=== PATIENT | female | born 2000 | race Hispanic/Latino ===

== ENCOUNTER 2022-11-19 02:16 | Emergency (ER) | payer MEDICAID, OTHER ==
[~2022-11-19] VITALS: Ht 165.1 cm; Wt 65.8 kg
[2022-11-19 03:47] LABS: APPEARANCE,URINE CLEAR (CLEAR); BILIRUBIN,URINE NEGATIVE (NEGATIVE); COLOR,URINE YELLOW (YELLOW); GLUCOSE, URINE (UA) NEGATIVE (NEGATIVE); KETONES,URINE 20 mg/dL (NEGATIVE); LEUKOCYTE ESTERASE ,URINE NEGATIVE Leu/uL (NEGATIVE); NITRATE,URINE NEGATIVE (NEGATIVE); OCCULT BLOOD,URINE SMALL (NEGATIVE); PROTEIN,URINE 50 mg/dL (NEGATIVE); UROBILINOGEN,URINE 0.2 mg/dL (0.2-1.0)
[2022-11-19 03:50] LABS: MUCUS,URINE FEW LPF (None Seen); SQUAMOUS EPITHELIAL CELL,UR FEW /HPF (0-2)
[2022-11-19 04:12] LABS: BASOPHILS % (AUTO) 0.2 % (0.0-5.0); EOSINOPHILS % (AUTO) 0.1 % (0.0-8.0); HEMATOCRIT 42.7 % (36-48); LYMPHOCYTES % (AUTO) 3.5 % (21.0-51.0); MEAN CORPUSCULAR HEMOGLOBIN 28.8 pg (27.0-33.0); MEAN CORPUSCULAR HGB CONC 33.5 g/dL (32.0-36.0); MEAN CORPUSCULAR VOLUME 85.9 fL (79-99); MONOCYTES % (AUTO) 5.1 % (3.0-13.0); NEUTROPHILS % (AUTO) 90.7 % (40.0-77.0); PLATELET COUNT (AUTO) 217 K/uL (130-400); RED BLOOD CELL COUNT(AUTO) 4.97 MIL/uL (4.00-5.50); WHITE BLOOD COUNT (AUTO) 13.9 K/uL (4.8-10.8)
[2022-11-19 04:20] LABS: CREATININE 0.9 mg/dL (0.5-1.5); POTASSIUM 4.1 mmol/L (3.5-5.1)
[2022-11-19 04:29] LABS: TOTAL PROTEIN, SERUM 8.2 g/dL (6.0-8.3)
[2022-11-19] MEDS ORDERED: ONDANSETRON 4MG INJ IVP STA (04:52)
[2022-11-19] MEDS ORDERED: 0.9%NACL 1000ML 1,000 ML IV ONE (05:00)
[2022-11-19 05:01] VITALS: BP 118/63
[2022-11-19] MEDS ORDERED: ONDA4TAB10 PO (05:13)
== END 2022-11-19 06:01 | disposition home or self-care (01) ==
LOC: EDH 02:16
DX: K52.9 Noninfective gastroenteritis and colitis, unspecified (principal)
CPT/HCPCS: 99283; 96374; 96361; 80053; 83690; 85025; 81001; 81025; 36415; J7030; J2405

== ENCOUNTER 2025-08-05 20:44 | Emergency (ER) | payer BC ==
[~2025-08-05] VITALS: Ht 167.6 cm; Wt 78.9 kg
[~2025-08-05 20:44] MED LIST: ONDA-243 PO
--- NOTE | 2025-08-05 21:00 | ERN ---
ED Note History of Present Illness Stated Complaint: C/O SOB ONSET TODAY Chief Complaint: Shortness of Breath Time Seen by MD: 20:46 Dictation: 24-YEAR-OLD PRESENTS TO ER COMPLAINTS OF SHORTNESS OF BREATH. PATIENT STATES THIS STARTED LAST NIGHT. PATIENT STATES SHE IS GOING THROUGH LOT OF STRESS AND FEELS SHE HAS ANXIETY Allergies: Coded Allergies: No Known Drug Allergies (Unverified Allergy, Unknown, 11/19/22) Home Meds Active Scripts Ondansetron (Ondansetron Odt) 4 Mg Tab.rapdis, 4 MG PO Q6HPRN for 2 Days, #8 TAB Prov:LORRIE RIVERA MD 11/19/22 Past Medical History Past Medical History: No Pertinent History Surgical History: None Social History: Negative LMP: Aug 05, 2025 Review of System Dictation CONSTITUTIONAL: NEGATIVE FOR FEVER,CHILLS, AND WEIGHT LOSS EYES: NEGATIVE FOR INJURY, PAIN,REDNESS, AND DISCHARGE ENT: NEGATIVE FOR INJURY,PAIN OR SWELLING CARDIOVASCULAR: NEGATIVE FOR CHEST PAIN, PALPITATIONS, AND EDEMA RESPIRATORY: NEGATIVE FOR COUGH, WHEEZING, AND PLEURITIC CHEST PAIN. POSITIVE SHORTNESS OF BREATH ABDOMEN/GI: NEGATIVE FOR ABDOMINAL PAIN, NAUSEA, VOMITING, DIARRHEA, AND CONSTIPATION BACK: NEGATIVE FOR INJURY AND PAIN : NEGATIVE FOR INJURY, BLEEDING AND DISCHARGE MS/EXTREMITY: NEGATIVE FOR INJURY AND DEFORMITY SKIN: NEGATIVE FOR RASH, AND DISCOLORATION NEURO: NEGATIVE FOR HEADACHE, WEAKNESS, NUMBNESS, TINGLING, AND SEIZURE PSYCH: NEGATIVE FOR SUICIDE IDEATION, HOMICIDAL IDEATION, AND HALLUCINATIONS. POSITIVE ANXIETY AND STRESS ALLERGY/IMMUNOLOGY: NEGATIVE FOR HIVES, RASH, AND ALLERGIES ALL SYSTEMS NEGATIVE, EXCEPT NOTED ABOVE. Initial Vital Sign VS Vital Signs Date Time Temp Pulse Resp B/P (MAP) Pulse Ox O2 Delivery O2 Flow Rate FiO2 08/05/25 20:46 98.1 79 20 149/81 98 Room Air 08/05/25 21:30 0 21 Physical Exam Dictation GENERAL: AWAKE, ALERT, NAD HEAD/FACE: NORMOCEPHALIC, ATRAUMATIC EYES: PERRL, EOMI, VISION AT BASELINE ENT: ORAL CAVITY CLEAR, TMS CLEAR, NO SIGNS OF INFECTION NECK: TRACHEA MIDLINE, SUPPLE, NO NUCHAL RIGIDITY CARDIOVASCULAR: RRR, NORMAL S1/S2, NO MRGS, NO JVD RESPIRATORY: CTAB, NO RESPIRATORY DISTRESS, NO RALES OR WHEEZES ABDOMEN: SOFT, NON-TENDER, NON-DISTENDED, NORMAL BOWEL SOUNDS, NO GUARDING OR REBOUND. SKIN: WARM, DRY, NORMAL TURGOR, NO RASH MS/EXTREMITY: PULSES EQUAL, NO CYANOSIS, NEUROVASCULAR INTACT, FROM NEURO: COAX4, GCS 15, STRENGTH 5/5, CN 2-12 INTACT, NORMAL CEREBELLAR EXAM, NORMAL GAIT, PSYCH: NORMAL BEHAVIOR, MOOD, AND AFFECT NORMAL Results (Laboratory/Radiology) Laboratory/Radiology Laboratory Tests Test 08/05/25 20:50 08/05/25 21:30 Influenza Type A Antigen Negative For Type A Influenza Type B Antigen Negative For Type B SARS-CoV-2, RNA, NAAT NEGATIVE SARS CoV-2 Urine HCG, Qualitative NEGATIVE (NEGATIVE) ED Course ED Course Orders Procedure Category Date Status Time Covid Rna Naat LAB 08/05/25 Complete 20:48 Influenza Type A & B, LAB 08/05/25 Complete Rapid 20:48 ,Urine Test LAB 08/05/25 Complete 20:57 Chest 2vws RAD 08/05/25 Resulted 20:57 Vital Signs Date Time Temp Pulse Resp B/P (MAP) Pulse Ox O2 Delivery O2 Flow Rate FiO2 08/05/25 21:30 98.2 76 16 145/80 98 Room Air* 0 21 08/05/25 20:46 98.1 79 20 149/81 98 Room Air Medical Decision Making MDM MDM: DIFFERENTIAL DIAGNOSIS: ANXIETY, STRESS, DYSPNEA RATIONALE: TESTS CONSIDERED AND ORDERED SECONDARY TO SHARED DECISION MAKING INCLUDE: LABS, ECG AND RADIOLOGY PREVIOUS OUTSIDE RECORDS REVIEWED: OLD ER VISITS. RISK OF COMPLICATION AND/OR MORBIDITY OR MORTALITY OF PATIENT MANAGEMENT: NONE MEDICATIONS-PER MEDICATION RECONCILIATION NEED FOR HOSPITALIZATION: PATIENT DOES NOT MEET CRITERIA FOR HOSPITALIZATION. NEED FOR EMERGENCY MAJOR/MINOR SURGERY: NO THERE ARE NO SOCIAL CONCERNS WITH THIS PATIENT. PRESCRIPTION DRUG MANAGEMENT PRESCRIPTIONS WILL INCLUDE SYMPTOMATIC CARE PATIENT'S PRIOR EXTERNAL MEDICAL RECORDS FROM OTHER ER VISITS WERE REVIEWED BY ME INDICATED. PRIOR TESTING AND RESULTS FROM PREVIOUS VISITS WERE REVIEWED. PRIOR TESTS WERE TAKEN INTO ACCOUNT WITH MEDICAL DECISION MAKING AND RESOURCE UTILIZATION, INDEPENDENT HISTORIAN/HISTORIANS WERE USED TO OBTAIN COMPLETE MEDIC AL HISTORY. INDEPENDENTLY INTERPRETED THE TEST THAT WERE PERFORMED, RESULTS WERE REVIEWED BY ME AND CONSIDERED FINDINGS ON RADIOLOGY IF ORDERED PATIENT VSS, NAD, NONTOXIC, STABLE FOR DISCHARGE. PT GIVEN DISCHARGE INSTRUCTIONS IN [place] TERMS AND UNDERSTOOD, ALL QUESTIONS ANSWERED. PT WILL FOLLOW UP WITH PCP AND RETURN TO THE ER IF WORSE. DX & DISP Disposition: Discharge Departure Impression: Primary Impression: Dyspnea Additional Impressions: Anxiety, Stress Condition: Stable Scripts Hydroxyzine HCl (Hydroxyzine HCl) 25 Mg Tablet 1 TAB PO BID for anxiety, #10 TAB 0 Refills Prov: ILDA DUBON NP 08/05/25 Additional Instructions: YOUR X-RAY IS NORMAL TODAY. YOU CAN TAKE MEDICATION PRESCRIBED FOR ANXIETY. FOLLOW-UP WITH YOUR PCP IN 24-72 HOURS AND IN THE EVENT IF SYMPTOMS WORSEN OR AN EMERGENCY OVERNIGHT REPORT TO THE ED IMMEDIATELY Referrals: SELF,REFERRAL (PCP) ILDA DUBON NP Aug 05, 2025 21:00
[2025-08-05 21:29] LABS: INFLUENZA TYPE A Negative For Type A (NEGATIVE); INFLUENZA TYPE B Negative For Type B (NEGATIVE)
[2025-08-05 21:30] VITALS: BP 145/80; PULSE 76; RESP 16; TEMP 98.3; O2SAT 98
[2025-08-05 21:31] LABS: SARS-CoV-2, RNA, NAAT NEGATIVE SARS CoV-2 (NEGATIVE)
--- NOTE | 2025-08-05 21:51 | HMCIMG ---
EXAM: XR Chest, 2 Views. CLINICAL HISTORY: 24 year old female with shortness of breath. COMPARISON: XR Chest dated 08/28/2014. FINDINGS: LUNGS: The lungs are clear. No consolidation. PLEURAL SPACES: No pleural effusion or pneumothorax. HEART: The heart size is normal. BONES: No acute osseous abnormality. IMPRESSION: 1. No acute findings. 2. Findings are similar to prior XR Chest dated 08/28/2014. /[place]
[2025-08-05] MEDS ORDERED: HYDR-3421 PO (22:09)
== END 2025-08-05 22:20 | disposition home or self-care (01) ==
LOC: EDH 20:44
DX: F41.9 Anxiety disorder, unspecified (principal); R06.00 Dyspnea, unspecified; F43.9 Reaction to severe stress, unspecified; Z20.822 Contact with and (suspected) exposure to COVID-19
CPT/HCPCS: 71046; 81025; 87635; 87804; 99283